=== PATIENT | male | born 1950 ===

== ENCOUNTER → 2020-08-16 | Outpatient (CLI) | payer BC, MEDICARE ==
[~2020-08-16] MED LIST: ALBU90OI; GLYMET5 PO; HYDROCHLOROTHIAZIDE PO; LOSARTAN PO; LOSARTAN-HCTZ1 EAC1 PO; LOVA40 PO; METANX CAPSULE1 EACH PO; NAPR500EC PO; PIOG30 PO
== END | disposition home or self-care (01) ==
LOC: LAB SHORT 11:09
DX: B35.1 Tinea unguium (principal); L60.2 Onychogryphosis
CPT/HCPCS: 88304; 88312

== ENCOUNTER 2023-11-05 06:45 | Day surgery (SDC) | payer MEDICARE ==
[~2023-11-05] VITALS: Ht 170.2 cm; Wt 120.8 kg
[~2023-11-05 06:45] MED LIST changes: +Balanced Salt Epinephrine Irrigation Solution 500 mL IR SCH; +DUTA.5 PO; +GLIP5 PO; +Lidocaine HCl/Pf 1% 5 ML VIAL XX SCH; +Moxifloxacin HCL 0.5 MG/0.1 ML 0.4MLSYR RIGHTEYE SCH; +NS 500 ML IV ONE; +PHENYLEPHRINE\\TROPICAMIDE\\TETRACAINE OPHTHALMIC DILATING SOLN RIGHTEYE PRN; +Povidone-Iodine 450 DROP/30 ML Solution RIGHTEYE SCH; +RYBELSUS14 MG PO; +TAMS.4ER PO; +Triamcinolone Inj Susp 40 MG / ML 1ML Vial INJ SCH
[2023-11-05] MEDS ORDERED: Lidocaine 1%-Epineph 1:100000 20 ML MDV ONE (06:49)
[2023-11-05] MEDS ORDERED: Triamcinolone Inj Susp 40 MG / ML 1ML Vial ONE (06:49)
[2023-11-05] MEDS ORDERED: NS 500 ML IV ONE (07:00)
[2023-11-05] MEDS ORDERED: HYDCHL25 PO (07:05)
[2023-11-05] MEDS ORDERED: JARDIANCE25 MG PO (07:05)
[2023-11-05] MEDS ORDERED: Crestor40 MG PO (07:06)
[2023-11-05] MEDS ORDERED: VALS80 PO (07:06)
[2023-11-05] MEDS ORDERED: FentaNYL Citrate 50 MCG/ML 2 ML Injection ONE (07:35)
[2023-11-05] MEDS ORDERED: Midazolam HCl 1MG / ML 2ML Vial ONE (07:36)
[2023-11-05] MEDS ORDERED: Tetracaine HCl 0.5% Opth Soln 15 ml RIGHTEYE ONE (08:05)
[2023-11-05 08:24] VITALS: BP 130/61
== END 2023-11-05 08:40 | disposition home or self-care (01) ==
LOC: ORSCSDS 06:45
PROVIDERS: Ophthalmology
PROC: 08RJ3JZ Replacement of Right Lens with Synthetic Substitute, Percutaneous Approach (ICD-10-PCS; principal; 2023-11-05 08:00)
DX: E11.36 Type 2 diabetes mellitus with diabetic cataract (principal); H25.811 Combined forms of age-related cataract, right eye; Z96.1 Presence of intraocular lens; I10 Essential (primary) hypertension; E66.9 Obesity, unspecified; Z68.41 Body mass index [BMI] 40.0-44.9, adult; Z79.899 Other long term (current) drug therapy; Z79.84 Long term (current) use of oral hypoglycemic drugs
CPT/HCPCS: 82947; J2250; J3010; J3301; J7040; V2632

== ENCOUNTER 2023-11-11 06:42 | Day surgery (SDC) | payer MEDICARE ==
[~2023-11-11] VITALS: Ht 170.2 cm; Wt 122.4 kg
[~2023-11-11 06:42] MED LIST changes: +Crestor40 MG PO; +HYDCHL25 PO; +JARDIANCE25 MG PO; +Lidocaine HCl/Pf 1% 5 ML VIAL ONE; +Moxifloxacin HCL 0.5 MG/0.1 ML 0.4MLSYR LEFTEYE SCH; -Moxifloxacin HCL 0.5 MG/0.1 ML 0.4MLSYR RIGHTEYE SCH; -NS 500 ML IV ONE; +PHENYLEPHRINE\\TROPICAMIDE\\TETRACAINE OPHTHALMIC DILATING SOLN LEFTEYE PRN; -PHENYLEPHRINE\\TROPICAMIDE\\TETRACAINE OPHTHALMIC DILATING SOLN RIGHTEYE PRN; +Povidone-Iodine 450 DROP/30 ML Solution LEFTEYE SCH; -Povidone-Iodine 450 DROP/30 ML Solution RIGHTEYE SCH; +Triamcinolone Inj Susp 40 MG / ML 1ML Vial ONE; +VALS80 PO
[2023-11-11] MEDS ORDERED: NS 1,000 ML IV ONE (07:06)
[2023-11-11] MEDS ORDERED: Midazolam HCl 1MG / ML 2ML Vial ONE (07:33)
[2023-11-11] MEDS ORDERED: FentaNYL Citrate 50 MCG/ML 2 ML Injection ONE (07:33)
[2023-11-11 08:29] VITALS: BP 143/76
== END 2023-11-11 08:38 | disposition home or self-care (01) ==
LOC: ORSCSDS 06:42
PROVIDERS: Ophthalmology
PROC: 08RK3JZ Replacement of Left Lens with Synthetic Substitute, Percutaneous Approach (ICD-10-PCS; principal; 2023-11-11 08:00)
DX: E11.36 Type 2 diabetes mellitus with diabetic cataract (principal); Z96.1 Presence of intraocular lens; I10 Essential (primary) hypertension; J45.909 Unspecified asthma, uncomplicated; E66.9 Obesity, unspecified; Z68.41 Body mass index [BMI] 40.0-44.9, adult; Z79.899 Other long term (current) drug therapy
CPT/HCPCS: 82947; J2001; J2250; J3010; J3301; V2632

== ENCOUNTER → 2024-12-13 | Outpatient (CLI) | payer MEDICARE ==
[~2024-12-13] MED LIST changes: -Balanced Salt Epinephrine Irrigation Solution 500 mL IR SCH; -Lidocaine HCl/Pf 1% 5 ML VIAL ONE; -Lidocaine HCl/Pf 1% 5 ML VIAL XX SCH; -Moxifloxacin HCL 0.5 MG/0.1 ML 0.4MLSYR LEFTEYE SCH; -PHENYLEPHRINE\\TROPICAMIDE\\TETRACAINE OPHTHALMIC DILATING SOLN LEFTEYE PRN; -Povidone-Iodine 450 DROP/30 ML Solution LEFTEYE SCH; -Triamcinolone Inj Susp 40 MG / ML 1ML Vial INJ SCH; -Triamcinolone Inj Susp 40 MG / ML 1ML Vial ONE
[2024-12-13 12:15] LABS: Creatinine, Urine Random 79.1 mg/dL (27.00-270.00); Microalb/Creat Ratio UR, Rand 27.054 mg/g (0.000-30.000); Microalbumin, Random Urine 21.4 mg/L (0.000-20.000)
== END | disposition home or self-care (01) ==
LOC: LAB 08:15 → LAB SHORT 08:15
PROVIDERS: Family Medicine
DX: E11.42 Type 2 diabetes mellitus with diabetic polyneuropathy (principal); E11.36 Type 2 diabetes mellitus with diabetic cataract; E11.59 Type 2 diabetes mellitus with other circulatory complications; E11.65 Type 2 diabetes mellitus with hyperglycemia; E11.69 Type 2 diabetes mellitus with other specified complication
CPT/HCPCS: 82043; 82570